=== PATIENT | male | born 1995 | race Caucasian/White ===

== ENCOUNTER 2022-09-02 18:05 | Emergency (ER) | payer OTHER, SELFPAY ==
[2022-09-02 18:13] VITALS: BP 117/70; PULSE 79; RESP 16; TEMP 36.4; O2SAT 95; BMI 34.9
--- NOTE | 2022-09-02 18:14 | ED_ITS ---
HPI - Psych General Chief Complaint: General Medical Stated Complaint: withdrawal Related Data Allergies Allergy/AdvReac Type Severity Reaction Status Date / Time codeine Allergy Intermediate STOMACH Verified 09/02/22 18:19 [From TYLENOL-CODEINE] PAIN risperidone [From RISPERDAL] Allergy Intermediate EPS Verified 09/02/22 18:19 acetaminophen [From VICODIN] Allergy Mild NAUSEA Verified 09/02/22 18:19 hydrocodone [From VICODIN] Allergy Mild NAUSEA Verified 09/02/22 18:19 ibuprofen [IBUPROFEN] Allergy Unknown NAUSEA & Verified 09/02/22 18:19 VOMITING PMFSH Social History Social History Advance Directives: No Physical Exam Vital Signs: Vital Signs: Last Vital Signs Temp 97.5 F 09/02/22 18:13 Pulse 79 09/02/22 18:13 Resp 16 09/02/22 18:13 BP 117/70 09/02/22 18:13 Pulse Ox 95 09/02/22 18:13 O2 Del Method Room Air 09/02/22 18:13 BMI result Body Mass Index 34.9 Course Reevaluation(s) Reevaluation #1: RME patient presents requesting suboxone, reports he gave some of his to his step dad so now he ran out. Tells me he needs two scrips to get him through until tomorrow. Tells me he get it at [facility]. Denies SI and HI. Denies medical complaints. Feels fine now PE benign Plan reach out to substance councelors need dose verification Time: 18:16 Reevaluation #2: I did a rapid medical exam on this patient I was not the primary provider, patient eloped the department Discharge Plan Discharge Clinical Impression: Medication refill Patient Disposition: Elopement Discharge Date/Time: 09/02/22 21:34
== END 2022-09-02 21:34 | disposition left against medical advice (07) ==
PROVIDERS: Emergency Provider Emergency Medicine
DX: F11.20 Opioid dependence, uncomplicated (principal)
CPT/HCPCS: 99281